=== PATIENT | female | born 1960 | race Caucasian/White ===

== ENCOUNTER → 2020-10-06 | Outpatient (CLI) | payer OTHER ==
[2020-10-07 12:15] LABS: RHEUMATOID ARTHRITIS FACTOR <10.0 IU/mL (0.0-13.9)
[2020-10-10 04:06] LABS: CCP ANTIBODIES IGG/IGA 5 units (0-19)
== END ==
LOC: LAB 13:30
PROVIDERS: Nurse Practitioner Family
DX: M25.50 Pain in unspecified joint (principal); M79.10 Myalgia, unspecified site; D89.9 Disorder involving the immune mechanism, unspecified; R76.8 Other specified abnormal immunological findings in serum
CPT/HCPCS: 82550; 83520; 85652; 86140; 86200; 86431

== ENCOUNTER → 2020-11-14 | Outpatient (CLI) | payer OTHER | LOC: RAD 15:04 | DX: R05 Cough (principal); R91.1 Solitary pulmonary nodule | CPT/HCPCS: 71046 ==

== ENCOUNTER → 2020-12-07 | Outpatient (CLI) | payer OTHER | LOC: KOH-I 12:38 | DX: R91.1 Solitary pulmonary nodule (principal); R05 Cough | CPT/HCPCS: 71250 ==